=== PATIENT | female | born 1970 | race Caucasian/White ===

== ENCOUNTER 2018-07-22 16:23 | Emergency (ER) | payer OTHER ==
--- NOTE | 2018-07-22 16:26 | PDOC ---
Rapid Medical Evaluation Time Seen by Provider: 07/22/18 16:24 Medical Evaluation: Allergies Allergy/AdvReac Type Severity Reaction Status Date / Time No Known Allergies Allergy Verified 12/06/14 23:39 07/22/18 16:25 I have performed a brief in-person evaluation of this patient. The patient presents with a chief complaint of: subconjunctival hemorrhage Pertinent physical exam findings: OD subconjunctival hemorrhage laterally I have ordered the following: nothing The patient will proceed to the ED for further evaluation. Discharge Disposition - Diagnosis Subconjunctival hemorrhage of right eye - Referrals - Patient Instructions - Post Discharge Activity
[2018-07-22 16:28] VITALS: BP 166/69; PULSE 70; TEMP 98.5; BMI 30.9
--- NOTE | 2018-07-22 16:46 | PDOC ---
History of Present Illness - General Chief Complaint: Eye Problem Stated Complaint: EYE PROBLEM, BLOOD PRESSURE Time Seen by Provider: 07/22/18 16:24 - History of Present Illness Initial Comments: 07/22/18 16:45 39-year-old female presents for evaluation of right eye subconjunctival hemorrhage. She states she first noticed it this morning. She has no associated symptoms. Past History - Past Medical History Allergies/Adverse Reactions: Allergies Allergy/AdvReac Type Severity Reaction Status Date / Time No Known Allergies Allergy Verified 07/22/18 16:28 Home Medications: Ambulatory Orders EPINEPHrine (EPI-PEN 0.3MG) [Epipen 0.3MG] 0.3 mg IM ASDIR #2 pens 10/09/12 Diphenhydramine HCl [Benadryl Capsules -] 25 mg PO TID #30 capsule 12/07/14 predniSONE [Deltasone -] 40 mg PO DAILY #14 tablet 12/07/14 COPD: No - Immunization History Immunization Up to Date: Yes - Suicide/Smoking/Psychosocial Hx Smoking Status: No Smoking History: Never smoked Have you smoked in the past 12 months: No Number of Cigarettes Smoked Daily: 0 Information on smoking cessation initiated: No Hx Alcohol Use: No Drug/Substance Use Hx: No Substance Use Type: None Review of Systems - Review of Systems HEENTM: Yes: See HPI *Physical Exam - Vital Signs Last Vital Signs Temp Pulse Resp BP Pulse Ox 98.5 F 70 17 166/69 100 07/22/18 16:25 07/22/18 16:25 07/22/18 16:25 07/22/18 16:25 07/22/18 16:25 - Physical Exam Comments: 07/22/18 16:45 HEAD: NC/AT EYES: Conjuntiva clear in the left eye right eye shows a small subconjunctival hemorrhage MS: Full ROM in all joints without edema NEUROLOGIC: No gross sensory or motor deficits, NVID SKIN: Normal color and temperature no lesions or rashes *DC/Admit/Observation/Transfer Diagnosis at time of Disposition: Subconjunctival hemorrhage of right eye - Discharge Dispostion Disposition: HOME Condition at time of disposition: Stable Decision to Admit order: No - Referrals Referrals: Evita Isbell MD [Staff Physician] - - Patient Instructions Printed Discharge Instructions: DI for Subconjunctival Hemorrhage Additional Instructions: Return to the emergency room should symptoms worsen or go unresolved or if you have eye pain. Otherwise follow-up with ophthalmology in 2-3 days for further evaluation and treatment options. There is nothing to do for the blood in your right eye will resolve on its own slowly - Post Discharge Activity
== END 2018-07-22 16:48 | disposition home or self-care (01) ==
LOC: JERFT 16:23
DX: H11.31 Conjunctival hemorrhage, right eye (principal)
CPT/HCPCS: 99281-25

== ENCOUNTER 2018-07-27 22:38 | Emergency (ER) | payer OTHER ==
[2018-07-27] MEDS ORDERED: EPINEPHrine/PF 1 MG/1 ML (1:1,000) AMPULE ONE (22:43)
[2018-07-27] MEDS ORDERED: ALBUTEROL SO4 2.5/IPRATROPIUM 0.5 INH SOL 3 ML VIAL.NEB. NEB ONE ×2 (22:46→22:48)
--- NOTE | 2018-07-27 22:47 | PDOC ---
History of Present Illness - General Stated Complaint: SOB Time Seen by Provider: 07/27/18 22:43 - History of Present Illness Initial Comments: 07/27/18 23:53 The patient is a 47 year old female with no significant PMH who presents for evaluation of difficulty breathing. The patient reports that she was drinking some orange juice and believes that she is having an allergic reaction. She states that she feels that her throat is closing and is having difficulty breathing and diffusing itching. She also complains of nausea and otherwise denies fevers, chills, vomiting, abdominal pain, or changes with urination or bowel movements. Past History - Past Medical History Allergies/Adverse Reactions: Allergies Allergy/AdvReac Type Severity Reaction Status Date / Time cat dander Allergy Severe Itching Verified 07/27/18 23:53 egg Allergy Severe Itching Verified 07/27/18 23:53 milk Allergy Severe Itching Verified 07/27/18 23:53 pollen extracts Allergy Severe Itching Verified 07/27/18 23:53 No Known Drug Allergies Allergy Verified 07/27/18 23:53 fruit Allergy Severe Itching Uncoded 07/27/18 23:53 Home Medications: Ambulatory Orders Diphenhydramine HCl [Benadryl -] 25 mg PO Q8H PRN #21 capsule 07/28/18 EPINEPHrine (EPI-PEN 0.3MG) [Epipen 0.3MG -] 0.3 mg IM ASDIR #2 pens 07/28/18 predniSONE [Deltasone -] 60 mg PO DAILY #15 tablet 07/28/18 COPD: No - Immunization History Immunization Up to Date: Yes - Suicide/Smoking/Psychosocial Hx Smoking Status: No Smoking History: Never smoked Have you smoked in the past 12 months: No Number of Cigarettes Smoked Daily: 0 Hx Alcohol Use: No Drug/Substance Use Hx: No Substance Use Type: None Review of Systems - Review of Systems Comments:: 07/27/18 23:57 Constitutional: No fevers, chills, fatigue, malaise HEENT: Facial Swelling. No Rhinorrhea, nasal congestion, visual changes Cardiovascular: No chest pain, syncope, palpitations, lightheadedness Respiratory: SOB. No Cough, Hemoptysis, Gastrointestinal: No Abdominal pain, Nausea, Vomiting, Constipation, Diarrhea, Melena Genitourinary: No Dysuria, Frequency, Urgency, Hesitancy, Hematuria, Flank pain Musculoskeletal: No Myalgia, arthralgia Skin: Itching. No rashes, bruising, pallor Neurologic: No Headache, Dizziness, Numbness, Weakness, or Tingling Psychiatric: No Hallucinations. No SI or HI *Physical Exam - Physical Exam Comments: 07/27/18 23:58 General Appearance: Nourished. In Apparent Distress HEENT: Periorbital edema noted on exam. No Pharyngeal Erythema, Tonsillar Exudate, Tonsillar Erythema Neck: No Cervical Lymphadenopathy Respiratory/Chest: Poor air movement with wheezing noted on exam. No Crackles, Rales, Rhonchi, Cardiovascular: Regular Rhythm, Regular Rate. No Murmur, Gallops, Rubs Gastrointestinal/Abdominal: Normal Bowel Sounds, Soft. No Guarding, Rebound, Tenderness Musculoskeletal: No CVA Tenderness Extremity: Normal Capillary Refill Integumentary: Normal Color, Dry, Warm Neurologic: Fully Oriented, Alert, Normal Mood/Affect, Normal Response, ED Treatment Course - LABORATORY CBC & Chemistry Diagram: 07/27/18 23:00 07/27/18 23:00 Medical Decision Making - Medical Decision Making 07/28/18 00:00 The patient is a 47 year old female with no significant PMH who presents for evaluation of difficulty breathing. Given the patient's history and physical exam, it is likely the patient is having an anaphalxis reaction. We treated the patient with IM Epi and a duoneb and will treat the patient with benadryl, zofran, pepcid, iv fluids, and solumedrol. We will obtained cbc, cmp to evaluate further. We will continue to closely monitor and reassess while here in the ED. 07/28/18 04:29 CBC, cmp are unremarkable. The patient has continued to remain asymptomatic for a 6 hour observation period. We are comfortable discharging the patient home on prednisone with Epipen with primary care provider follow up. We discussed the results, plan, and return precautions with the patient who voiced understanding and is agreeable with the plan. *DC/Admit/Observation/Transfer Diagnosis at time of Disposition: Allergic reaction Qualifiers: Encounter type: initial encounter Qualified Code(s): T78.40XA - Allergy, unspecified, initial encounter - Discharge Dispostion Disposition: HOME Condition at time of disposition: Stable - Prescriptions Prescriptions: Diphenhydramine HCl [Benadryl -] 25 mg PO Q8H PRN #21 capsule PRN Reason: Allergic Reaction EPINEPHrine (EPI-PEN 0.3MG) [Epipen 0.3MG -] 0.3 mg IM ASDIR #2 pens predniSONE [Deltasone -] 60 mg PO DAILY #15 tablet - Referrals - Patient Instructions Printed Discharge Instructions: DI for Anaphylaxis Additional Instructions: Please return to the ER if you experience concerning or worsening symptoms including worsening difficulty breathing, weakness, or chest pain. You experienced an allergic reaction here in the ER. We have sent a prescription to your pharmacy for an Epipen that you should use as directed should you experience worsening symptoms. We have sent steroids to your pharmacy as well that you should take daily for the next 4-5 days. Please use benadryl as needed for recurrent symptoms as well. Your lab results were normal here in the ER. Please call to schedule a follow up appointment with your primary care provider within 2-3 days to discuss your ER visit and further management of your symptoms. Por favor, regrese a la dionicio de emergencias si experimenta problemas o empeoramiento de los sntomas incluyendo empeoramiento de la dificultad respiratoria, debilidad o dolor en el pecho. Usted experiment arun reaccin alrgica aqu en [facility]. Hemos enviado arun prescripcin a english farmacia para un EpiPen que usted debe utilizar segn lo indicado si usted experimenta el empeoramiento de sntomas. Hemos enviado esteroides a english farmacia, as que usted debe karri diariamente eduar los prximos 4-5 reid. Utilice por favor Benadryl ambika sea necesario para los sntomas recurrentes tambin. Los resultados de tu laboratorio fueron normales aqu en [facility]. Por favor llame para programar arun frederic de seguimiento con english proveedor de cuidado primario dentro de los 2-3 reid para discutir english visita de URGENCIAs y la administracin de bipin sntomas. Print Language: MACEDONIAN - Post Discharge Activity Forms/Work/School Notes: Back to Work
[2018-07-27] MEDS ORDERED: methylPREDNISolone NA SUCC 125 MG/2 ML VIAL IVPUSH ONE (22:48)
[2018-07-27] MEDS ORDERED: FAMOTIDINE 20 MG/50 ML IVPB 20 MG/50 ML MG IVPB ONE ×2 (22:48→23:02)
[2018-07-27] MEDS ORDERED: SODIUM CHLORIDE 1,000 ML IV STA (22:48)
[2018-07-27] MEDS ORDERED: EPINEPHrine 1:1,000 0.3 MG/0.3 ML SYR IM ONE (22:48)
[2018-07-27] MEDS ORDERED: ONDANSETRON 4 MG/2 ML VIAL IVPUSH ONE (22:49)
--- NOTE | 2018-07-27 22:59 | PDOC ---
Attending Attestation - Resident Resident Name: Donnell Pope - ED Attending Attestation I have performed the following: I have examined & evaluated the patient, The case was reviewed & discussed with the resident, I agree w/resident's findings & plan, Exceptions are as noted - Medical Decision Making 07/27/18 22:56 A portion of this note was documented by scribe services under my direction. I have reviewed the details of the note, within reason, and agree with the documentation with the following case summary and management plan written by me. Patient treated in the ED. Nursing notes are reviewed and incorporated into the medical decision-making. Vital signs reviewed. Peripheral IV access obtained by the nurse, laboratory studies are drawn and sent, reviewed and interpreted by myself. Vital Signs Temp Pulse Resp BP Pulse Ox 114 H 26 H 164/79 98 07/27/18 22:51 07/27/18 22:51 07/27/18 22:51 07/27/18 22:51 47-year-old female patient with history of hypertension, multiple ALLERGIES presents with anaphylaxis. The patient reported that she was drinking orange juice prior to arrival and started developing wheezing, diffuse itching, nausea , vomiting, diarrhea, itchiness and throat swelling closing sensation. Patient came to the ER immediately. The patient was seen by us and given an epinephrine pen. The symptoms improved immediately. Reports improvement in airways and other symptoms. The patient had anaphylaxis. We'll give Benadryl, Pepcid, Cipro Medrol and IV fluids. We'll observe the patient for 6 hours. If the symptoms are resolved, the patient may be eligible to go home. However, the symptoms are persistent, the patient may need to be admitted to the hospital for further observation. <Kevin Kearns - Last Filed: 07/27/18 22:56> - HPI HPI: 07/27/18 23:13 The patient is a 47 year old female, with a significant past medical history of multiple allergies, who presents to the emergency department with, allergic reaction. As per patient, her symptoms onset just after drinking orange juice. Upon her arrival, the patient is experiencing diffuse hives, periorbital edema, and swelling to her lips. Patient endorses an associated diarrhea and nausea. - Physicial Exam PE: 07/27/18 23:11 GENERAL: Awake, alert, and fully oriented. +EYES: Periorbital edema. Injected conjunctiva bilaterally. +ENT:Edema to the lips. +LUNGS: Diffuse bilateral expiratory wheezing. +NEUROLOGICAL: Hoarse voice. Cranial nerves II through XII grossly intact. +SKIN: Diffuse erythema. Patient is scratching herself diffusely. <Rose Alexander - Last Filed: 07/27/18 23:13> Attestations - Attestations 07/27/18 23:13 Documentation prepared by Rose Alexander, acting as medical care manager for Kevin Kearns MD. <Rose Alexander - Last Filed: 07/27/18 23:13>
[2018-07-27] MEDS ORDERED: ONDANSETRON 4 MG/2 ML VIAL ONE (23:01)
[2018-07-27 23:02] VITALS: BP 164/79; PULSE 114; BMI 31.2
[2018-07-27] MEDS ORDERED: methylPREDNISolone NA SUCC 125 MG/2 ML VIAL ONE (23:02)
[2018-07-27 23:11] LABS: BASO % 0.4 % (0-2.0); EOS % 3.1 % (0-4.5); HEMATOCRIT 32.4 % (32.4-45.2); HEMOGLOBIN 10.5 GM/dL (10.7-15.3); LYMPH % 49.6 % (8-40); MCH 22.2 pg (25.7-33.7); MCHC 32.5 g/dl (32.0-36.0); MEAN CELL VOLUME 68.3 fl (80-96); MEAN PLT VOLUME 8.4 fl (7.5-11.1); MONO % 8.4 % (3.8-10.2); NEUT % 38.5 % (42.8-82.8); PLATELET COUNT 301 K/MM3 (134-434); RBC 4.75 M/mm3 (3.60-5.2); RDW 17.6 % (11.6-15.6); WHITE BLOOD COUNT 7.4 K/mm3 (4.0-10.0)
[2018-07-27 23:41] LABS: ALBUMIN 3.7 g/dl (3.4-5.0); ALK PHOS 87 U/L (45-117); ANION GAP 8 MMOL/L (8-16); BILIRUBIN,TOTAL 0.3 mg/dL (0.2-1); BLOOD UREA NITROGEN 20 mg/dL (7-18); CALCIUM 8.9 mg/dL (8.5-10.1); CHLORIDE 105 mmol/L (98-107); CO2 26 mmol/L (21-32); GLUCOSE,RANDOM 173 mg/dL (74-106); SGOT/AST 18 U/L (15-37); SGPT/ALT 20 U/L (13-61); SODIUM 139 mmol/L (136-145); TOT PROT 7.6 g/dl (6.4-8.2)
[2018-07-28] MEDS ORDERED: predniSONE 20 MG TABLET (UD) PO ONE (04:26)
[2018-07-28] MEDS ORDERED: predniSONE 20 MG TABLET (UD) ONE (04:50)
== END 2018-07-28 05:11 | disposition home or self-care (01) ==
LOC: JER 22:38
PROC: 3E0F7GC Introduction of Other Therapeutic Substance into Respiratory Tract, Via Natural or Artificial Opening (ICD-10-PCS; principal; 2018-07-27)
PROC: 3E0233Z Introduction of Anti-inflammatory into Muscle, Percutaneous Approach (ICD-10-PCS; 2018-07-27)
PROC: 3E033GC Introduction of Other Therapeutic Substance into Peripheral Vein, Percutaneous Approach (ICD-10-PCS; 2018-07-27)
PROC: 3E033GC Introduction of Other Therapeutic Substance into Peripheral Vein, Percutaneous Approach (ICD-10-PCS; 2018-07-27)
PROC: 3E033GC Introduction of Other Therapeutic Substance into Peripheral Vein, Percutaneous Approach (ICD-10-PCS; 2018-07-27)
PROC: 3E0333Z Introduction of Anti-inflammatory into Peripheral Vein, Percutaneous Approach (ICD-10-PCS; 2018-07-27)
DX: T78.40XA Allergy, unspecified, initial encounter (principal)
CPT/HCPCS: 36415; 80053; 85025; 94640; 96365; 96372; 96375; 99281-25; 99282-25; J7030